=== PATIENT | female | born 1980 | race Two or more races ===

== ENCOUNTER 2017-10-24 14:31 | Observation (INO) | payer SELFPAY ==
[~2017-10-24] VITALS: Ht 157.5 cm; Wt 66.3 kg
[2017-10-24 14:59] LABS: BASO # 0.1 x10^3/uL (0.0-0.2); BASO % 0 % (0-3); EOS # 0.3 x10^3/uL (0.0-0.7); EOS % 2 % (0-3); HEMATOCRIT 42.2 % (36.0-47.0); HEMOGLOBIN 15.1 g/dL (12.0-15.5); LYMPH # 2.6 x10^3/uL (1.0-4.8); LYMPH % 15 % (24-48); MEAN CORPUSCULAR HEMOGLOBIN 32 pg (25-35); MEAN CORPUSCULAR HGB CONC 36 g/dL (31-37); MEAN CORPUSCULAR VOLUME 88 fL (79-100); MONO % 6 % (0-9); NEUT # 13.8 x10^3uL (1.8-7.7); NEUT % 78 % (31-73); PLATELET COUNT 444 x10^3/uL (140-400); RED CELL DISTRIBUTION WIDTH 12.9 % (11.5-14.5); WHITE BLOOD COUNT 17.8 x10^3/uL (4.0-11.0)
[2017-10-24] MEDS ORDERED: IV NORMAL SALINE 1000ML BAG 1,000 ML IV ONE ×2 (15:00→16:15)
[2017-10-24 15:14] LABS: CALCIUM 9.9 mg/dL (8.5-10.1); DIRECT BILIRUBIN 0.1 mg/dL (0.0-0.2); GFR 62.4; TOTAL BILIRUBIN 0.3 mg/dL (0.2-1.0); TOTAL PROTEIN 9.1 g/dL (6.4-8.2)
[2017-10-24 15:17] LABS: POTASSIUM 2.9 mmol/L (3.5-5.1)
[2017-10-24 15:21] LABS: % BASOS 1 % (0-3); % EOS 2 % (0-5); % LYMPHS 16 % (24-48); % MONOS 6 % (0-10); % SEGS 75 % (35-66); PLT ESTIMATE INCREASED (ADEQUATE)
--- NOTE | 2017-10-24 15:47 | EKG ---
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
--- NOTE | 2017-10-24 16:01 | RAD ---
EXAM: Chest, single view. HISTORY: Chest pain. COMPARISON: None. FINDINGS: A frontal view of the chest is obtained. There is no infiltrate, pleural effusion or pneumothorax. The heart is normal in size. IMPRESSION: No acute pulmonary finding. Electronically signed by: Kia Orozco MD (10/24/2017 3:57 PM) [place] [id number]
[2017-10-24 16:08] LABS: PREG TEST PT QUAL NEGATIVE (NEG)
[2017-10-24 16:09] LABS: ACETAMIN < 2 mcg/ml (10-30); ETHANOL < 10 mg/dL (0-10); SALIC 2.9 mg/dL (2.8-20.0)
--- NOTE | 2017-10-24 16:58 | PHYS DOC ---
Past Medical History Past Medical History: Other Additional Past Medical Histor: HYPOKALEMIA Past Surgical History: No Surgical History Additional Information: 0.25 PPD Alcohol Use: None Drug Use: None Adult General Chief Complaint Chief Complaint: CHEST PAIN HPI HPI This is a pleasant 36-year-old female with a history of low potassium presenting the emergency department today with chest pain started at noon associate with shortness breath and cough over the past few days that is nonproductive. She also has had loose stools over the past 24 hours. The pain as a sharp substernal pain that is nonradiating intermittent and without alleviating factors. She denies diaphoresis or nausea. Past surgical history: None Social history, smoker, denies IV drug use, drink occasionally. Review of systems is negative for abdominal pain nausea vomiting. Negative for fevers chills or headache. Negative neck stiffness. All other review of systems is negative unless otherwise noted in history of present illness. ED course: 36-year-old female presenting the emergency department with significant hypertension and tachycardia with chest pain. EKG obtained and reviewed by myself shows tachycardia at a rate of approximately 130. Sinus rhythm. ST segments are congruent. Not suggestive of ACS. Chest x-ray obtained and unremarkable. White blood cell count is elevated at 17,000. Potassium is low at 2.9. IV fluids given along with IV labetalol. CT angiogram ordered. Lactic acid added on. IV Rocephin given in the emergency department. CT injury negative for pulmonary embolism. IV potassium given. Urine drug screen tested positive for methamphetamines. We'll give the patient IV Ativan. We will admit the patient to Dr. domínguez for further evaluation treatment and care. Cardiology consulted. Review of Systems Review of Systems SEE ABOVE. Current Medications Current Medications Current Medications Medications (Trade) Dose Ordered Sig/Liborio Start Time Stop Time Status Last Admin Dose Admin Ceftriaxone Sodium 50 ml @ 100 mls/hr 1X ONCE 10/24/17 15:45 10/24/17 16:14 DC 10/24/17 15:53 100 MLS/HR Iohexol (Omnipaque 300 Mg/ml) 100 ml STK-MED ONCE 10/24/17 17:06 10/24/17 17:07 DC Labetalol HCl (Normodyne Iv Push) 10 mg 1X ONCE 10/24/17 17:00 10/24/17 17:01 DC 10/24/17 17:50 10 MG Lorazepam (Ativan) 1 mg 1X ONCE 10/24/17 18:00 10/24/17 18:01 DC Morphine Sulfate (Morphine Sulfate) 2 mg PRN Q2HR PRN 10/24/17 18:00 10/25/17 17:59 Ondansetron HCl (Zofran) 4 mg PRN Q8HRS PRN 10/24/17 18:00 10/25/17 17:59 Potassium Chloride/Sodium Chloride 1,000 ml @ 75 mls/hr 1X ONCE 10/24/17 16:00 10/25/17 05:19 10/24/17 16:15 75 MLS/HR Sodium Chloride 1,000 ml @ 100 mls/hr Q10H 10/24/17 17:47 10/25/17 17:46 Allergies Allergies Allergies Coded Allergies Type Severity Reaction Last Updated Verified No Known Drug Allergies 10/24/17 No Physical Exam Physical Exam SEE ABOVE Constitutional: Well developed, well nourished, no acute distress HENT: Normocephalic, atraumatic, bilateral external ears normal, oropharynx moist, no oral exudates, nose normal. [] Eyes: PERRLA, EOMI, conjunctiva normal, no discharge. [] Neck: Normal range of motion, no tenderness, supple, no stridor. [] Cardiovascular:tachy heart rate with regular rhythm, no murmur [] Lungs & Thorax: Bilateral breath sounds clear to auscultation [] Abdomen: Bowel sounds normal, soft, no tenderness, no masses, no pulsatile masses. [] Skin: Warm, dry, no erythema, no rash. [] Back: No tenderness, no CVA tenderness. [] Extremities: No tenderness, no cyanosis, no clubbing, ROM intact, no edema. [] Neurologic: Alert and oriented X 3, normal motor function, normal sensory function, no focal deficits noted. [] Psychologic: Affect normal, judgement normal, mood normal. [] Current Patient Data Vital Signs Vital Signs Date Time Temp Pulse Resp B/P (MAP) Pulse Ox O2 Delivery O2 Flow Rate FiO2 10/24/17 17:50 106 191/98 10/24/17 14:37 97.7 26 100 Room Air 97.7 Lab Values Laboratory Tests Test 10/24/17 14:55 10/24/17 15:56 10/24/17 16:01 10/24/17 16:50 White Blood Count 17.8 x10^3/uL (4.0-11.0) H Red Blood Count 4.80 x10^6/uL (3.50-5.40) Hemoglobin 15.1 g/dL (12.0-15.5) Hematocrit 42.2 % (36.0-47.0) Mean Corpuscular Volume 88 fL (79-100) Mean Corpuscular Hemoglobin 32 pg (25-35) Mean Corpuscular Hemoglobin Concent 36 g/dL (31-37) Red Cell Distribution Width 12.9 % (11.5-14.5) Platelet Count 444 x10^3/uL (140-400) H Neutrophils (%) (Auto) 78 % (31-73) H Lymphocytes (%) (Auto) 15 % (24-48) L Monocytes (%) (Auto) 6 % (0-9) Eosinophils (%) (Auto) 2 % (0-3) Basophils (%) (Auto) 0 % (0-3) Neutrophils # (Auto) 13.8 x10^3uL (1.8-7.7) H Lymphocytes # (Auto) 2.6 x10^3/uL (1.0-4.8) Monocytes # (Auto) 1.0 x10^3/uL (0.0-1.1) Eosinophils # (Auto) 0.3 x10^3/uL (0.0-0.7) Basophils # (Auto) 0.1 x10^3/uL (0.0-0.2) Segmented Neutrophils % 75 % (35-66) H Lymphocytes % 16 % (24-48) L Monocytes % 6 % (0-10) Eosinophils % 2 % (0-5) Basophils % 1 % (0-3) Platelet Estimate Increased (ADEQUATE) D-Dimer (Racheal) 0.48 ug/mlFEU (0.00-0.50) Sodium Level 139 mmol/L (136-145) Potassium Level 2.9 mmol/L (3.5-5.1) *L Chloride Level 100 mmol/L (98-107) Carbon Dioxide Level 19 mmol/L (21-32) L Anion Gap 20 (6-14) H Blood Urea Nitrogen 5 mg/dL (7-20) L Creatinine 1.0 mg/dL (0.6-1.0) Estimated GFR (Cockcroft-Gault) 62.4 Glucose Level 118 mg/dL (70-99) H Calcium Level 9.9 mg/dL (8.5-10.1) Total Bilirubin 0.3 mg/dL (0.2-1.0) Direct Bilirubin 0.1 mg/dL (0.0-0.2) Aspartate Amino Transferase (AST) 34 U/L (15-37) Alanine Aminotransferase (ALT) 38 U/L (14-59) Alkaline Phosphatase 112 U/L (46-116) Troponin I Quantitative < 0.017 ng/mL (0.000-0.055) Total Protein 9.1 g/dL (6.4-8.2) H Albumin 4.0 g/dL (3.4-5.0) Lipase 164 U/L (73-393) Serum Test, Qualitative Negative (NEG) Salicylates Level 2.9 mg/dL (2.8-20.0) Salicylate Last Dose Date Unknown Salicylate Last Dose Time Unknown Acetaminophen Level < 2 mcg/ml (10-30) L Acetaminophen Last Dose Date Unknown Acetaminophen Last Dose Time Unknown Ethyl Alcohol Level < 10 mg/dL (0-10) Urine Opiates Screen Neg (NEG) Urine Methadone Screen Neg (NEG) Urine Barbiturates Neg (NEG) Urine Phencyclidine Screen Neg (NEG) Urine Amphetamine/Methamphetamine Pos (NEG) Urine Benzodiazepines Screen Neg (NEG) Urine Cocaine Screen Neg (NEG) Urine Cannabinoids Screen Neg (NEG) Urine Ethyl Alcohol Neg (NEG) POC Urine HCG, Qualitative Hcg negative (Negative) Lactic Acid Level 2.5 mmol/L (0.4-2.0) H Laboratory Tests 10/24/17 14:55 Laboratory Tests 10/24/17 14:55 EKG EKG [] Radiology/Procedures Radiology/Procedures [] Course & Med Decision Making Course & Med Decision Making Pertinent Labs and Imaging studies reviewed. (See chart for details) [] Dragon Disclaimer Dragon Disclaimer This electronic medical record was generated, in whole or in part, using a voice recognition dictation system. Departure Departure Impression: Primary Impression: Chest pain Additional Impressions: Tachycardia Hypertension Lactic acidosis Disposition: 09 ADMITTED INPATIENT Admitting Physician: Domínguez, Elsi Condition: STABLE Referrals: NO PCP (PCP) Problem Qualifiers GEGE SALGADO MD Oct 24, 2017 16:58
[2017-10-24] MEDS ORDERED: LABETALOL 20 MG/4 ML DISP.SYRIN. IVP ONE (17:00)
[2017-10-24] MEDS ORDERED: IOHEXOL 300 MG/ML 100ML VIAL. ONE (17:06)
[2017-10-24 17:12] LABS: BARBITURATES NEG (NEG); BENZODIAZEPINES NEG (NEG); CANNABINOIDS NEG (NEG); COCAINE NEG (NEG); METHADONE NEG (NEG); OPIATES NEG (NEG); PHENCYCLIDINE NEG (NEG)
[2017-10-24 17:20] LABS: AMPHETAMINE/METHAMPHETAMINE POS (NEG)
--- NOTE | 2017-10-24 17:39 | RAD ---
CTA scan of the Chest with Contrast (Pulmonary Embolism protocol) 10/24/2017 Clinical History: Severe chest pain since earlier today. Technique: After the intravenous administration of 75 cc of Omnipaque 300, contiguous, 0.625 mm axial sections were obtained through the chest. 2 mm axial and 3D MIP coronal and sagittal reconstructed images were obtained. Findings: Comparison is made to a portable chest radiograph performed earlier today. No filling defect is seen within the major branches of either pulmonary artery. There is no CT evidence of pulmonary embolism. The heart and thoracic aorta are within normal limits. Minimal dependent subsegmental atelectasis is seen involving both lungs. No area of consolidation is seen., pleural effusion or pneumothorax is seen. Images through the upper abdomen demonstrate calcified gallstones within a contracted gallbladder. Impression: There is no CT evidence of pulmonary embolism. Electronically signed by: Demarco Miller MD (10/24/2017 5:35 PM) [facility]
[2017-10-24] MEDS: IV NORMAL SALINE 1000ML BAG 1,000 ML IV SCH (17:47)
[2017-10-24] MEDS ORDERED: ONDANSETRON PF 4 MG/2 ML VIAL. IV PRN (18:00)
[2017-10-24] MEDS ORDERED: MORPHINE SULFATE 2 MG/ML VIAL. IV PRN (18:00)
[2017-10-24 18:03] LABS: BILIRUBIN,URINE NEGATIVE (NEG); CLARITY,URINE CLEAR; NITRITE,URINE NEGATIVE (NEG); PH,URINE 6.5; PROTEIN,URINE NEGATIVE (NEG-TRACE); UROBILINOGEN,URINE 0.2 mg/dL (0.2 mg/dL)
[2017-10-24 18:13] LABS: BACTERIA,URINE MODERATE /HPF (0-FEW); COLOR,URINE STRAW; RBC,URINE RARE /HPF (0-2); SQUAMOUS EPITHELIAL CELL,UR MOD /LPF
--- NOTE | 2017-10-24 19:24 | EKG ---
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
[2017-10-24 20:50] VITALS: BP 158/92
[2017-10-24] MEDS ORDERED: POTASSIUM CHLORIDE 20 MEQ TABLET.ER. PO ONE (21:30)
--- NOTE | 2017-10-24 21:33 | PDOC1 ---
History and Physical Date of Admission Date of Admission DATE: 10/24/17 TIME: 21:29 Identification/Chief Complaint Chief Complaint chestpain Source Source: Caregiver, Chart review, Patient History of Present Illness History of Present Illness This is a pleasant 36-year-old female admit form ER with chest pain, tachycardia and marked anxiety. The chest pain started at noon associate with shortness breath and cough over the past few days that is nonproductive. SHe seems anxious and reports that she feels terrible and cannot calm down, she has her daughters in the room, and denies, vaguely any meds or ingestions. The pain as a sharp substernal pain that is nonradiating intermittent and without alleviating factors. She denies diaphoresis or nausea. Past Medical History Cardiovascular: No pertinent hx Pulmonary: No pertinent hx GI: No pertinent hx Heme/Onc: No pertinent hx Family History Family History: No Significant Social History Drugs: Crystal meth (she seems unaware of this) Current Problem List Problem List Problems Medical Problems: (1) Chest pain Status: Acute (2) Hypertension Status: Acute (3) Lactic acidosis Status: Acute (4) Tachycardia Status: Acute Current Medications Current Medications Current Medications Sodium Chloride 1,000 ml @ 1,000 mls/hr 1X ONCE IV Last administered on at 15:23; Start 10/24/17 at 15:00; Stop 10/24/17 at 15:59; Status DC Ceftriaxone Sodium 50 ml @ 100 mls/hr 1X ONCE IV Last administered on at 15:53; Start 10/24/17 at 15:45; Stop 10/24/17 at 16:14; Status DC Potassium Chloride/Sodium Chloride 1,000 ml @ 75 mls/hr 1X ONCE IV Last administered on 10/24/17at 16:15; Start 10/24/17 at 16:00; Stop 10/25/17 at 05:19 Sodium Chloride 1,000 ml @ 1,000 mls/hr 1X ONCE IV Last administered on at 16:18; Start 10/24/17 at 16:15; Stop 10/24/17 at 17:14; Status DC Labetalol HCl (Normodyne Iv Push) 10 mg 1X ONCE IVP Last administered on at 17:50; Start 10/24/17 at 17:00; Stop 10/24/17 at 17:01; Status DC Iohexol (Omnipaque 300 Mg/ml) 100 ml STK-MED ONCE .ROUTE ; Start 10/24/17 at 17: 06; Stop 10/24/17 at 17:07; Status DC Ondansetron HCl (Zofran) 4 mg PRN Q8HRS PRN IV NAUSEA/VOMITING; Start 10/24/17 at 18:00; Stop 10/25/17 at 17:59 Morphine Sulfate (Morphine Sulfate) 2 mg PRN Q2HR PRN IV PAIN; Start 10/24/17 at 18:00; Stop 10/25/17 at 17:59 Sodium Chloride 1,000 ml @ 100 mls/hr Q10H IV ; Start 10/24/17 at 17:47; Stop 10/25/17 at 17:46 Lorazepam (Ativan) 1 mg 1X ONCE IV Last administered on 10/24/17at 18:30; Start 10/24/17 at 18:00; Stop 10/24/17 at 18:01; Status DC Lidocaine (Lidoderm) 1 patch DAILY TD ; Start 10/25/17 at 18:30 Allergies Allergies: Coded Allergies: No Known Drug Allergies (Unverified , 10/24/17) ROS General: No: Chills, Night Sweats, Fatigue, Malaise, Appetite, Other PSYCHOLOGICAL ROS: YES: Anxiety, Sleep disturbances; No: Behavioral Disorder, Concentration difficultie, Decreased libido, Depression, Disorientation, Hallucinations, Hostility, Irritablity, Memory difficulties, Mood Swings, Obsessive thoughts, Suicidal ideation, Other Eyes: No Blurry vision, No Decreased vision, No Double vision, No Dry eyes, No Excessive tearing, No Eye Pain, No Itchy Eyes, No Loss of vision, No Photophobia , No Scotomata, No Uses contacts, No Uses glasses, No Other HEENT: No: Heacaches, Visual Changes, Hearing change, Nasal congestion, Nasal discharge, Oral lesions, Sinus pain, Sore Throat, Epistaxis, Sneezing, Snoring, Tinnitus, Vertigo, Vocal changes, Other Respiratory: YES: Tachypnea; No: Cough, Hemoptysis, Orthopnea, Pleuritic Pain, Shortness of breath, SOB with excertion, Sputum Changes, Stridor, Wheezing, Other Cardiovascular: yes Chest Pain, yes Other; No Palpitations, No Orthopnea, No Paroxysmal Noc. Dyspnea, No Edema, No Lt Headedness Gastrointestinal: No Nausea, No Vomiting, No Abdominal Pain, No Diarrhea, No Constipation, No Melena, No Hematochezia, No Other Genitourinary: No Dysuria, No Frequency, No Incontinence, No Hematuria, No Retention, No Discharge, No Urgency, No Pain, No Flank Pain, No Other, No , No , No , No , No , No , No Musculoskeletal: Yes Joint Stiffness; No Gait Disturbance, No Joint Pain, No Joint Swelling, No Muscle Pain, No Muscular Weakness, No Pain In:, No Swelling In:, No Other Neurological: No Behavorial Changes, No Bowel/Bladder ControlChng, No Confusion , No Dizziness, No Gait Disturbance, No Headaches, No Impaired Coord/balance, No Memory Loss, No Numbness/Tingling, No Seizures, No Speech Problems, No Tremors, No Visual Changes, No Weakness, No Other Skin: No Dry Skin, No Eczema, No Hair Changes, No Lumps, No Mole Changes, No Mottling, No Nail Changes, No Pruritus, No Rash, No Skin Lesion Changes, No Other, No Acne Physical Exam General: Alert, Cooperative, mild distress, moderate distress HEENT: EOMI, Mucous membr. moist/pink Heart: S1S2, no gallops, no murmurs Abdomen: Soft Extremities: No cyanosis Skin: No rashes Neuro: Normal speech, Sensation intact Psych/Mental Status: Mood NL Vitals Vitals Vital Signs Date Time Temp Pulse Resp B/P (MAP) Pulse Ox O2 Delivery O2 Flow Rate FiO2 10/24/17 20:50 98.5 99 16 158/92 (114) 100 Room Air 98.5 Labs Labs Laboratory Tests Test 10/24/17 14:55 10/24/17 15:56 10/24/17 16:01 10/24/17 16:50 White Blood Count 17.8 x10^3/uL (4.0-11.0) Red Blood Count 4.80 x10^6/uL (3.50-5.40) Hemoglobin 15.1 g/dL (12.0-15.5) Hematocrit 42.2 % (36.0-47.0) Mean Corpuscular Volume 88 fL (79-100) Mean Corpuscular Hemoglobin 32 pg (25-35) Mean Corpuscular Hemoglobin Concent 36 g/dL (31-37) Red Cell Distribution Width 12.9 % (11.5-14.5) Platelet Count 444 x10^3/uL (140-400) Neutrophils (%) (Auto) 78 % (31-73) Lymphocytes (%) (Auto) 15 % (24-48) Monocytes (%) (Auto) 6 % (0-9) Eosinophils (%) (Auto) 2 % (0-3) Basophils (%) (Auto) 0 % (0-3) Neutrophils # (Auto) 13.8 x10^3uL (1.8-7.7) Lymphocytes # (Auto) 2.6 x10^3/uL (1.0-4.8) Monocytes # (Auto) 1.0 x10^3/uL (0.0-1.1) Eosinophils # (Auto) 0.3 x10^3/uL (0.0-0.7) Basophils # (Auto) 0.1 x10^3/uL (0.0-0.2) Segmented Neutrophils % 75 % (35-66) Lymphocytes % 16 % (24-48) Monocytes % 6 % (0-10) Eosinophils % 2 % (0-5) Basophils % 1 % (0-3) Platelet Estimate Increased (ADEQUATE) D-Dimer (Racheal) 0.48 ug/mlFEU (0.00-0.50) Sodium Level 139 mmol/L (136-145) Potassium Level 2.9 mmol/L (3.5-5.1) Chloride Level 100 mmol/L (98-107) Carbon Dioxide Level 19 mmol/L (21-32) Anion Gap 20 (6-14) Blood Urea Nitrogen 5 mg/dL (7-20) Creatinine 1.0 mg/dL (0.6-1.0) Estimated GFR (Cockcroft-Gault) 62.4 Glucose Level 118 mg/dL (70-99) Calcium Level 9.9 mg/dL (8.5-10.1) Total Bilirubin 0.3 mg/dL (0.2-1.0) Direct Bilirubin 0.1 mg/dL (0.0-0.2) Aspartate Amino Transf (AST/SGOT) 34 U/L (15-37) Alanine Aminotransferase (ALT/SGPT) 38 U/L (14-59) Alkaline Phosphatase 112 U/L (46-116) Troponin I Quantitative < 0.017 ng/mL (0.000-0.055) Total Protein 9.1 g/dL (6.4-8.2) Albumin 4.0 g/dL (3.4-5.0) Lipase 164 U/L (73-393) Serum Test, Qualitative Negative (NEG) Salicylates Level 2.9 mg/dL (2.8-20.0) Salicylate Last Dose Date Unknown Salicylate Last Dose Time Unknown Acetaminophen Level < 2 mcg/ml (10-30) Acetaminophen Last Dose Date Unknown Acetaminophen Last Dose Time Unknown Ethyl Alcohol Level < 10 mg/dL (0-10) Urine Collection Type Void Urine Color Straw Urine Clarity Clear Urine pH 6.5 Urine Specific [place] <=1.005 Urine Protein Negative mg/dL (NEG-TRACE) Urine Glucose (UA) Negative mg/dL (NEG) Urine Ketones (Stick) Negative mg/dL (NEG) Urine Blood Small (NEG) Urine Nitrite Negative (NEG) Urine Bilirubin Negative (NEG) Urine Urobilinogen Dipstick 0.2 mg/dL (0.2 mg/dL) Urine Leukocyte Esterase Small (NEG) Urine RBC Rare /HPF (0-2) Urine WBC 1-4 /HPF (0-4) Urine Squamous Epithelial Cells Mod /LPF Urine Bacteria Moderate /HPF (0-FEW) Urine Opiates Screen Neg (NEG) Urine Methadone Screen Neg (NEG) Urine Barbiturates Neg (NEG) Urine Phencyclidine Screen Neg (NEG) Urine Amphetamine/Methamphetamine Pos (NEG) Urine Benzodiazepines Screen Neg (NEG) Urine Cocaine Screen Neg (NEG) Urine Cannabinoids Screen Neg (NEG) Urine Ethyl Alcohol Neg (NEG) Bedside Urine HCG, Qualitative Hcg negative (Negative) Lactic Acid Level 2.5 mmol/L (0.4-2.0) Test 10/24/17 20:30 Troponin I Quantitative < 0.017 ng/mL (0.000-0.055) Laboratory Tests Test 10/24/17 14:55 10/24/17 15:56 10/24/17 16:01 10/24/17 16:50 White Blood Count 17.8 x10^3/uL (4.0-11.0) Red Blood Count 4.80 x10^6/uL (3.50-5.40) Hemoglobin 15.1 g/dL (12.0-15.5) Hematocrit 42.2 % (36.0-47.0) Mean Corpuscular Volume 88 fL (79-100) Mean Corpuscular Hemoglobin 32 pg (25-35) Mean Corpuscular Hemoglobin Concent 36 g/dL (31-37) Red Cell Distribution Width 12.9 % (11.5-14.5) Platelet Count 444 x10^3/uL (140-400) Neutrophils (%) (Auto) 78 % (31-73) Lymphocytes (%) (Auto) 15 % (24-48) Monocytes (%) (Auto) 6 % (0-9) Eosinophils (%) (Auto) 2 % (0-3) Basophils (%) (Auto) 0 % (0-3) Neutrophils # (Auto) 13.8 x10^3uL (1.8-7.7) Lymphocytes # (Auto) 2.6 x10^3/uL (1.0-4.8) Monocytes # (Auto) 1.0 x10^3/uL (0.0-1.1) Eosinophils # (Auto) 0.3 x10^3/uL (0.0-0.7) Basophils # (Auto) 0.1 x10^3/uL (0.0-0.2) Segmented Neutrophils % 75 % (35-66) Lymphocytes % 16 % (24-48) Monocytes % 6 % (0-10) Eosinophils % 2 % (0-5) Basophils % 1 % (0-3) Platelet Estimate Increased (ADEQUATE) D-Dimer (Racheal) 0.48 ug/mlFEU (0.00-0.50) Sodium Level 139 mmol/L (136-145) Potassium Level 2.9 mmol/L (3.5-5.1) Chloride Level 100 mmol/L (98-107) Carbon Dioxide Level 19 mmol/L (21-32) Anion Gap 20 (6-14) Blood Urea Nitrogen 5 mg/dL (7-20) Creatinine 1.0 mg/dL (0.6-1.0) Estimated GFR (Cockcroft-Gault) 62.4 Glucose Level 118 mg/dL (70-99) Calcium Level 9.9 mg/dL (8.5-10.1) Total Bilirubin 0.3 mg/dL (0.2-1.0) Direct Bilirubin 0.1 mg/dL (0.0-0.2) Aspartate Amino Transf (AST/SGOT) 34 U/L (15-37) Alanine Aminotransferase (ALT/SGPT) 38 U/L (14-59) Alkaline Phosphatase 112 U/L (46-116) Troponin I Quantitative < 0.017 ng/mL (0.000-0.055) Total Protein 9.1 g/dL (6.4-8.2) Albumin 4.0 g/dL (3.4-5.0) Lipase 164 U/L (73-393) Serum Test, Qualitative Negative (NEG) Salicylates Level 2.9 mg/dL (2.8-20.0) Salicylate Last Dose Date Unknown Salicylate Last Dose Time Unknown Acetaminophen Level < 2 mcg/ml (10-30) Acetaminophen Last Dose Date Unknown Acetaminophen Last Dose Time Unknown Ethyl Alcohol Level < 10 mg/dL (0-10) Urine Collection Type Void Urine Color Straw Urine Clarity Clear Urine pH 6.5 Urine Specific [place] <=1.005 Urine Protein Negative mg/dL (NEG-TRACE) Urine Glucose (UA) Negative mg/dL (NEG) Urine Ketones (Stick) Negative mg/dL (NEG) Urine Blood Small (NEG) Urine Nitrite Negative (NEG) Urine Bilirubin Negative (NEG) Urine Urobilinogen Dipstick 0.2 mg/dL (0.2 mg/dL) Urine Leukocyte Esterase Small (NEG) Urine RBC Rare /HPF (0-2) Urine WBC 1-4 /HPF (0-4) Urine Squamous Epithelial Cells Mod /LPF Urine Bacteria Moderate /HPF (0-FEW) Urine Opiates Screen Neg (NEG) Urine Methadone Screen Neg (NEG) Urine Barbiturates Neg (NEG) Urine Phencyclidine Screen Neg (NEG) Urine Amphetamine/Methamphetamine Pos (NEG) Urine Benzodiazepines Screen Neg (NEG) Urine Cocaine Screen Neg (NEG) Urine Cannabinoids Screen Neg (NEG) Urine Ethyl Alcohol Neg (NEG) Bedside Urine HCG, Qualitative Hcg negative (Negative) Lactic Acid Level 2.5 mmol/L (0.4-2.0) Test 10/24/17 20:30 Troponin I Quantitative < 0.017 ng/mL (0.000-0.055) VTE Prophylaxis Ordered VTE Prophylaxis Devices: No VTE Pharmacological Prophylaxi: No Assessment/Plan Assessment/Plan chest pain, left sternal, poss angina, but also reproducible Meth use, she seems unaware, and may have accidentally ingested hypokalemia SIRS - IV rocephin given, UA neg, no source admit, KEENAN MEANS MD Oct 24, 2017 21:33
[2017-10-24 22:38] VITALS: BP 156/98
[2017-10-24] MEDS ORDERED: INFLUENZA VAX SCREEN BY RX. MC ONE (23:45)
[2017-10-25 03:26] VITALS: BP 141/96
[2017-10-25] MEDS: IV NORMAL SALINE 1000ML BAG 1,000 ML IV SCH ×2 (05:25→13:47)
[2017-10-25 06:03] LABS: CALCIUM 8.6 mg/dL (8.5-10.1); CREATININE 0.7 mg/dL (0.6-1.0); GFR 94.2; POTASSIUM 3.9 mmol/L (3.5-5.1)
[2017-10-25 06:13] LABS: BASO # 0.1 x10^3/uL (0.0-0.2); BASO % 1 % (0-3); EOS # 1.2 x10^3/uL (0.0-0.7); EOS % 8 % (0-3); HEMATOCRIT 36.8 % (36.0-47.0); HEMOGLOBIN 12.7 g/dL (12.0-15.5); LYMPH # 3.6 x10^3/uL (1.0-4.8); LYMPH % 27 % (24-48); MEAN CORPUSCULAR HEMOGLOBIN 31 pg (25-35); MEAN CORPUSCULAR HGB CONC 34 g/dL (31-37); MEAN CORPUSCULAR VOLUME 89 fL (79-100); MONO # 0.8 x10^3/uL (0.0-1.1); MONO % 6 % (0-9); NEUT % 59 % (31-73); PLATELET COUNT 347 x10^3/uL (140-400); RED BLOOD COUNT 4.13 x10^6/uL (3.50-5.40); RED CELL DISTRIBUTION WIDTH 13.3 % (11.5-14.5); WHITE BLOOD COUNT 13.6 x10^3/uL (4.0-11.0)
[2017-10-25 07:00] VITALS: BP 140/78
[2017-10-25] MEDS ORDERED: POTASSIUM CHLORIDE 20 MEQ TABLET.ER. PO SCH (08:00)
--- NOTE | 2017-10-25 09:20 | PDOC2 ---
ROBYN BARAKAT SOCK LINING EXAMINER 10/25/17 0920: CARDIAC CONSULT DATE OF CONSULT Date of Consult DATE: 10/25/17 TIME: 09:13 REASON FOR CONSULT Reason for Consult: chest pain REFERRING PHYSICIAN Referring Physician: Yudelka SOURCE Source: Chart review HISTORY OF PRESENT ILLNESS HISTORY OF PRESENT ILLNESS 36 year old non-Martiniquais speaking female admitted through the ER for tachycardia and chest pain. UDS + for methamphetamines. Troponins and EKGs not consistent with AMI. Reason for Visit: chest pain PAST MEDICAL HISTORY Cardiovascular: No pertinent hx Pulmonary: No pertinent hx GI: No pertinent hx Heme/Onc: No pertinent hx Renal/: No pertinent hx Endocrine: No pertinent hx PAST SURGICAL HISTORY Past Surgical History: No pertinent history FAMILY HISTORY Family History: Family History Unknown SOCIAL HISTORY Drugs: Crystal meth CURRENT MEDICATIONS CURRENT MEDICATIONS Current Medications Medications (Trade) Dose Ordered Sig/Liborio Route PRN Reason Start Time Stop Time Status Last Admin Dose Admin Sodium Chloride 1,000 ml @ 1,000 mls/hr 1X ONCE IV 10/24/17 15:00 10/24/17 15:59 DC 10/24/17 15:23 Ceftriaxone Sodium 50 ml @ 100 mls/hr 1X ONCE IV 10/24/17 15:45 10/24/17 16:14 DC 10/24/17 15:53 Potassium Chloride/Sodium Chloride 1,000 ml @ 75 mls/hr 1X ONCE IV 10/24/17 16:00 10/25/17 05:19 DC 10/24/17 16:15 Sodium Chloride 1,000 ml @ 1,000 mls/hr 1X ONCE IV 10/24/17 16:15 10/24/17 17:14 DC 10/24/17 16:18 Labetalol HCl (Normodyne Iv Push) 10 mg 1X ONCE IVP 10/24/17 17:00 10/24/17 17:01 DC 10/24/17 17:50 Sodium Chloride 1,000 ml @ 100 mls/hr Q10H IV 10/24/17 17:47 10/25/17 17:46 10/25/17 05:25 Lorazepam (Ativan) 1 mg 1X ONCE IV 10/24/17 18:00 10/24/17 18:01 DC 10/24/17 18:30 Potassium Chloride (Klor-Con) 40 meq 1X ONCE PO 10/24/17 21:30 10/24/17 21:36 DC 10/24/17 22:10 ALLERGIES ALLERGIES: Coded Allergies: No Known Drug Allergies (Unverified , 10/24/17) ROS Respiratory: YES: Shortness of breath Cardiovascular: yes Chest Pain PHYSICAL EXAM General: Alert, Cooperative, No acute distress HEENT: Atraumatic Lungs: Clear to auscultation, Normal air movement Heart: Regular rate, Normal S1, Normal S2, No murmurs Abdomen: Soft Extremities: No edema Skin: No rashes Neuro: Normal speech Psych/Mental Status: Mental status NL, Mood NL MUSCULOSKELETAL: No deformity VITALS VITALS Vital Signs Date Time Temp Pulse Resp B/P (MAP) Pulse Ox O2 Delivery O2 Flow Rate FiO2 10/25/17 07:00 98.2 86 18 140/78 (98) 99 Room Air 98.2 LABS Lab: Laboratory Tests Test 10/24/17 14:55 10/24/17 15:56 10/24/17 16:01 10/24/17 16:50 White Blood Count 17.8 x10^3/uL (4.0-11.0) Red Blood Count 4.80 x10^6/uL (3.50-5.40) Hemoglobin 15.1 g/dL (12.0-15.5) Hematocrit 42.2 % (36.0-47.0) Mean Corpuscular Volume 88 fL (79-100) Mean Corpuscular Hemoglobin 32 pg (25-35) Mean Corpuscular Hemoglobin Concent 36 g/dL (31-37) Red Cell Distribution Width 12.9 % (11.5-14.5) Platelet Count 444 x10^3/uL (140-400) Neutrophils (%) (Auto) 78 % (31-73) Lymphocytes (%) (Auto) 15 % (24-48) Monocytes (%) (Auto) 6 % (0-9) Eosinophils (%) (Auto) 2 % (0-3) Basophils (%) (Auto) 0 % (0-3) Neutrophils # (Auto) 13.8 x10^3uL (1.8-7.7) Lymphocytes # (Auto) 2.6 x10^3/uL (1.0-4.8) Monocytes # (Auto) 1.0 x10^3/uL (0.0-1.1) Eosinophils # (Auto) 0.3 x10^3/uL (0.0-0.7) Basophils # (Auto) 0.1 x10^3/uL (0.0-0.2) Segmented Neutrophils % 75 % (35-66) Lymphocytes % 16 % (24-48) Monocytes % 6 % (0-10) Eosinophils % 2 % (0-5) Basophils % 1 % (0-3) Platelet Estimate Increased (ADEQUATE) D-Dimer (Racheal) 0.48 ug/mlFEU (0.00-0.50) Sodium Level 139 mmol/L (136-145) Potassium Level 2.9 mmol/L (3.5-5.1) Chloride Level 100 mmol/L (98-107) Carbon Dioxide Level 19 mmol/L (21-32) Anion Gap 20 (6-14) Blood Urea Nitrogen 5 mg/dL (7-20) Creatinine 1.0 mg/dL (0.6-1.0) Estimated GFR (Cockcroft-Gault) 62.4 Glucose Level 118 mg/dL (70-99) Calcium Level 9.9 mg/dL (8.5-10.1) Total Bilirubin 0.3 mg/dL (0.2-1.0) Direct Bilirubin 0.1 mg/dL (0.0-0.2) Aspartate Amino Transf (AST/SGOT) 34 U/L (15-37) Alanine Aminotransferase (ALT/SGPT) 38 U/L (14-59) Alkaline Phosphatase 112 U/L (46-116) Troponin I Quantitative < 0.017 ng/mL (0.000-0.055) Total Protein 9.1 g/dL (6.4-8.2) Albumin 4.0 g/dL (3.4-5.0) Lipase 164 U/L (73-393) Serum Test, Qualitative Negative (NEG) Salicylates Level 2.9 mg/dL (2.8-20.0) Salicylate Last Dose Date Unknown Salicylate Last Dose Time Unknown Acetaminophen Level < 2 mcg/ml (10-30) Acetaminophen Last Dose Date Unknown Acetaminophen Last Dose Time Unknown Ethyl Alcohol Level < 10 mg/dL (0-10) Urine Collection Type Void Urine Color Straw Urine Clarity Clear Urine pH 6.5 Urine Specific [place] <=1.005 Urine Protein Negative mg/dL (NEG-TRACE) Urine Glucose (UA) Negative mg/dL (NEG) Urine Ketones (Stick) Negative mg/dL (NEG) Urine Blood Small (NEG) Urine Nitrite Negative (NEG) Urine Bilirubin Negative (NEG) Urine Urobilinogen Dipstick 0.2 mg/dL (0.2 mg/dL) Urine Leukocyte Esterase Small (NEG) Urine RBC Rare /HPF (0-2) Urine WBC 1-4 /HPF (0-4) Urine Squamous Epithelial Cells Mod /LPF Urine Bacteria Moderate /HPF (0-FEW) Urine Opiates Screen Neg (NEG) Urine Methadone Screen Neg (NEG) Urine Barbiturates Neg (NEG) Urine Phencyclidine Screen Neg (NEG) Urine Amphetamine/Methamphetamine Pos (NEG) Urine Benzodiazepines Screen Neg (NEG) Urine Cocaine Screen Neg (NEG) Urine Cannabinoids Screen Neg (NEG) Urine Ethyl Alcohol Neg (NEG) Bedside Urine HCG, Qualitative Hcg negative (Negative) Lactic Acid Level 2.5 mmol/L (0.4-2.0) Test 10/24/17 20:30 10/24/17 23:40 10/25/17 00:40 10/25/17 04:35 Troponin I Quantitative < 0.017 ng/mL (0.000-0.055) < 0.017 ng/mL (0.000-0.055) Lactic Acid Level 1.9 mmol/L (0.4-2.0) White Blood Count 13.6 x10^3/uL (4.0-11.0) Red Blood Count 4.13 x10^6/uL (3.50-5.40) Hemoglobin 12.7 g/dL (12.0-15.5) Hematocrit 36.8 % (36.0-47.0) Mean Corpuscular Volume 89 fL (79-100) Mean Corpuscular Hemoglobin 31 pg (25-35) Mean Corpuscular Hemoglobin Concent 34 g/dL (31-37) Red Cell Distribution Width 13.3 % (11.5-14.5) Platelet Count 347 x10^3/uL (140-400) Neutrophils (%) (Auto) 59 % (31-73) Lymphocytes (%) (Auto) 27 % (24-48) Monocytes (%) (Auto) 6 % (0-9) Eosinophils (%) (Auto) 8 % (0-3) Basophils (%) (Auto) 1 % (0-3) Neutrophils # (Auto) 8.0 x10^3uL (1.8-7.7) Lymphocytes # (Auto) 3.6 x10^3/uL (1.0-4.8) Monocytes # (Auto) 0.8 x10^3/uL (0.0-1.1) Eosinophils # (Auto) 1.2 x10^3/uL (0.0-0.7) Basophils # (Auto) 0.1 x10^3/uL (0.0-0.2) Sodium Level 139 mmol/L (136-145) Potassium Level 3.9 mmol/L (3.5-5.1) Chloride Level 105 mmol/L (98-107) Carbon Dioxide Level 23 mmol/L (21-32) Anion Gap 11 (6-14) Blood Urea Nitrogen 5 mg/dL (7-20) Creatinine 0.7 mg/dL (0.6-1.0) Estimated GFR (Cockcroft-Gault) 94.2 Glucose Level 80 mg/dL (70-99) Calcium Level 8.6 mg/dL (8.5-10.1) IMAGES IMAGES CT chest : Findings: Comparison is made to a portable chest radiograph performed earlier today. No filling defect is seen within the major branches of either pulmonary artery. There is no CT evidence of pulmonary embolism. The heart and thoracic aorta are within normal limits. Minimal dependent subsegmental atelectasis is seen involving both lungs. No area of consolidation is seen., pleural effusion or pneumothorax is seen. Images through the upper abdomen demonstrate calcified gallstones within a contracted gallbladder. Impression: There is no CT evidence of pulmonary embolism. EKG EKG no acute changes on 2 EKGS ECHOCARDIOGRAM ECHOCARDIOGRAM pending ASSESSMENT/PLAN ASSESSMENT/PLAN 1. chest pain --trop and EKG not consistent with AMI --likely related to methamphetamine use; advised to stop use; no indication for ischemic evaluation at this time --TTE ordered earlier --may discharge later today 2. elevated lactate level --defer to primary service 3. substance abuse --BRITT Sharif MD 10/25/17 8232: CARDIAC CONSULT ASSESSMENT/PLAN ASSESSMENT/PLAN Patient seen and examined. Agree with SEROLOGIST's assessment and plan. Chest pain with atypical features and most probably noncardiac Myocardial infarction has been ruled out based on cardiac enzymes and EKG 2-D echo showed normal LV systolic function without any wall motion abnormalities No further cardiac workup is indicated at this time Thank you for your consultation ROBYN BARAKAT APRN Oct 25, 2017 09:20 BRITT VILLA MD Oct 25, 2017 17:12
[2017-10-25 11:00] VITALS: BP 121/78
[2017-10-25] MEDS ORDERED: traMADol 50 MG TABLET PO PRN (14:30)
[2017-10-25] MEDS ORDERED: ONDANSETRON PF 4 MG/2 ML VIAL. IV PRN (14:30)
[2017-10-25] MEDS ORDERED: ACETAMINOPHEN 325 MG TABLET. PO PRN (14:30)
[2017-10-25] MEDS ORDERED: DOCUSATE SODIUM 100 MG CAPSULE. PO PRN (14:30)
[2017-10-25] MEDS ORDERED: MORPHINE SULFATE 2 MG/ML VIAL. IV PRN (14:30)
--- NOTE | 2017-10-25 14:30 | PDOC ---
PROGRESS NOTES Chief Complaint Chief Complaint chest pain, left sternal, with palpitation with meth Meth use, she seems unaware, and may have accidentally ingested hypokalemia SIRS - leukocytosis, reactive likely plan: fu with card TTE today pt feels fine, no chest pain, no cough, possible dc today or tmr History of Present Illness History of Present Illness feels fine, no cough, sob, or chest pain Vitals Vitals Vital Signs Date Time Temp Pulse Resp B/P (MAP) Pulse Ox O2 Delivery O2 Flow Rate FiO2 10/25/17 11:00 98.2 82 18 121/78 (92) 98 Room Air 98.2 Physical Exam General: Alert, Cooperative, No acute distress Heart: Regular rate, Normal S1, Normal S2, No murmurs Lungs: Clear Abdomen: Soft Extremities: No edema Skin: No rashes Labs LABS Laboratory Tests Test 10/24/17 14:55 10/24/17 15:56 10/24/17 16:01 10/24/17 16:50 White Blood Count 17.8 x10^3/uL (4.0-11.0) Red Blood Count 4.80 x10^6/uL (3.50-5.40) Hemoglobin 15.1 g/dL (12.0-15.5) Hematocrit 42.2 % (36.0-47.0) Mean Corpuscular Volume 88 fL (79-100) Mean Corpuscular Hemoglobin 32 pg (25-35) Mean Corpuscular Hemoglobin Concent 36 g/dL (31-37) Red Cell Distribution Width 12.9 % (11.5-14.5) Platelet Count 444 x10^3/uL (140-400) Neutrophils (%) (Auto) 78 % (31-73) Lymphocytes (%) (Auto) 15 % (24-48) Monocytes (%) (Auto) 6 % (0-9) Eosinophils (%) (Auto) 2 % (0-3) Basophils (%) (Auto) 0 % (0-3) Neutrophils # (Auto) 13.8 x10^3uL (1.8-7.7) Lymphocytes # (Auto) 2.6 x10^3/uL (1.0-4.8) Monocytes # (Auto) 1.0 x10^3/uL (0.0-1.1) Eosinophils # (Auto) 0.3 x10^3/uL (0.0-0.7) Basophils # (Auto) 0.1 x10^3/uL (0.0-0.2) Segmented Neutrophils % 75 % (35-66) Lymphocytes % 16 % (24-48) Monocytes % 6 % (0-10) Eosinophils % 2 % (0-5) Basophils % 1 % (0-3) Platelet Estimate Increased (ADEQUATE) D-Dimer (Racheal) 0.48 ug/mlFEU (0.00-0.50) Sodium Level 139 mmol/L (136-145) Potassium Level 2.9 mmol/L (3.5-5.1) Chloride Level 100 mmol/L (98-107) Carbon Dioxide Level 19 mmol/L (21-32) Anion Gap 20 (6-14) Blood Urea Nitrogen 5 mg/dL (7-20) Creatinine 1.0 mg/dL (0.6-1.0) Estimated GFR (Cockcroft-Gault) 62.4 Glucose Level 118 mg/dL (70-99) Calcium Level 9.9 mg/dL (8.5-10.1) Total Bilirubin 0.3 mg/dL (0.2-1.0) Direct Bilirubin 0.1 mg/dL (0.0-0.2) Aspartate Amino Transf (AST/SGOT) 34 U/L (15-37) Alanine Aminotransferase (ALT/SGPT) 38 U/L (14-59) Alkaline Phosphatase 112 U/L (46-116) Troponin I Quantitative < 0.017 ng/mL (0.000-0.055) Total Protein 9.1 g/dL (6.4-8.2) Albumin 4.0 g/dL (3.4-5.0) Lipase 164 U/L (73-393) Serum Test, Qualitative Negative (NEG) Salicylates Level 2.9 mg/dL (2.8-20.0) Salicylate Last Dose Date Unknown Salicylate Last Dose Time Unknown Acetaminophen Level < 2 mcg/ml (10-30) Acetaminophen Last Dose Date Unknown Acetaminophen Last Dose Time Unknown Ethyl Alcohol Level < 10 mg/dL (0-10) Urine Collection Type Void Urine Color Straw Urine Clarity Clear Urine pH 6.5 Urine Specific [place] <=1.005 Urine Protein Negative mg/dL (NEG-TRACE) Urine Glucose (UA) Negative mg/dL (NEG) Urine Ketones (Stick) Negative mg/dL (NEG) Urine Blood Small (NEG) Urine Nitrite Negative (NEG) Urine Bilirubin Negative (NEG) Urine Urobilinogen Dipstick 0.2 mg/dL (0.2 mg/dL) Urine Leukocyte Esterase Small (NEG) Urine RBC Rare /HPF (0-2) Urine WBC 1-4 /HPF (0-4) Urine Squamous Epithelial Cells Mod /LPF Urine Bacteria Moderate /HPF (0-FEW) Urine Opiates Screen Neg (NEG) Urine Methadone Screen Neg (NEG) Urine Barbiturates Neg (NEG) Urine Phencyclidine Screen Neg (NEG) Urine Amphetamine/Methamphetamine Pos (NEG) Urine Benzodiazepines Screen Neg (NEG) Urine Cocaine Screen Neg (NEG) Urine Cannabinoids Screen Neg (NEG) Urine Ethyl Alcohol Neg (NEG) Bedside Urine HCG, Qualitative Hcg negative (Negative) Lactic Acid Level 2.5 mmol/L (0.4-2.0) Test 10/24/17 20:30 10/24/17 23:40 10/25/17 00:40 10/25/17 04:35 Troponin I Quantitative < 0.017 ng/mL (0.000-0.055) < 0.017 ng/mL (0.000-0.055) Lactic Acid Level 1.9 mmol/L (0.4-2.0) White Blood Count 13.6 x10^3/uL (4.0-11.0) Red Blood Count 4.13 x10^6/uL (3.50-5.40) Hemoglobin 12.7 g/dL (12.0-15.5) Hematocrit 36.8 % (36.0-47.0) Mean Corpuscular Volume 89 fL (79-100) Mean Corpuscular Hemoglobin 31 pg (25-35) Mean Corpuscular Hemoglobin Concent 34 g/dL (31-37) Red Cell Distribution Width 13.3 % (11.5-14.5) Platelet Count 347 x10^3/uL (140-400) Neutrophils (%) (Auto) 59 % (31-73) Lymphocytes (%) (Auto) 27 % (24-48) Monocytes (%) (Auto) 6 % (0-9) Eosinophils (%) (Auto) 8 % (0-3) Basophils (%) (Auto) 1 % (0-3) Neutrophils # (Auto) 8.0 x10^3uL (1.8-7.7) Lymphocytes # (Auto) 3.6 x10^3/uL (1.0-4.8) Monocytes # (Auto) 0.8 x10^3/uL (0.0-1.1) Eosinophils # (Auto) 1.2 x10^3/uL (0.0-0.7) Basophils # (Auto) 0.1 x10^3/uL (0.0-0.2) Sodium Level 139 mmol/L (136-145) Potassium Level 3.9 mmol/L (3.5-5.1) Chloride Level 105 mmol/L (98-107) Carbon Dioxide Level 23 mmol/L (21-32) Anion Gap 11 (6-14) Blood Urea Nitrogen 5 mg/dL (7-20) Creatinine 0.7 mg/dL (0.6-1.0) Estimated GFR (Cockcroft-Gault) 94.2 Glucose Level 80 mg/dL (70-99) Calcium Level 8.6 mg/dL (8.5-10.1) Assessment and Plan Assessmemt and Plan Problems Medical Problems: (1) Chest pain Status: Acute (2) Hypertension Status: Acute (3) Lactic acidosis Status: Acute (4) Tachycardia Status: Acute Comment Review of Relevant I have reviewed the following items dayna (where applicable) has been applied. Labs Laboratory Tests Test 10/24/17 14:55 10/24/17 15:56 10/24/17 16:01 10/24/17 16:50 White Blood Count 17.8 x10^3/uL (4.0-11.0) Red Blood Count 4.80 x10^6/uL (3.50-5.40) Hemoglobin 15.1 g/dL (12.0-15.5) Hematocrit 42.2 % (36.0-47.0) Mean Corpuscular Volume 88 fL (79-100) Mean Corpuscular Hemoglobin 32 pg (25-35) Mean Corpuscular Hemoglobin Concent 36 g/dL (31-37) Red Cell Distribution Width 12.9 % (11.5-14.5) Platelet Count 444 x10^3/uL (140-400) Neutrophils (%) (Auto) 78 % (31-73) Lymphocytes (%) (Auto) 15 % (24-48) Monocytes (%) (Auto) 6 % (0-9) Eosinophils (%) (Auto) 2 % (0-3) Basophils (%) (Auto) 0 % (0-3) Neutrophils # (Auto) 13.8 x10^3uL (1.8-7.7) Lymphocytes # (Auto) 2.6 x10^3/uL (1.0-4.8) Monocytes # (Auto) 1.0 x10^3/uL (0.0-1.1) Eosinophils # (Auto) 0.3 x10^3/uL (0.0-0.7) Basophils # (Auto) 0.1 x10^3/uL (0.0-0.2) Segmented Neutrophils % 75 % (35-66) Lymphocytes % 16 % (24-48) Monocytes % 6 % (0-10) Eosinophils % 2 % (0-5) Basophils % 1 % (0-3) Platelet Estimate Increased (ADEQUATE) D-Dimer (Racheal) 0.48 ug/mlFEU (0.00-0.50) Sodium Level 139 mmol/L (136-145) Potassium Level 2.9 mmol/L (3.5-5.1) Chloride Level 100 mmol/L (98-107) Carbon Dioxide Level 19 mmol/L (21-32) Anion Gap 20 (6-14) Blood Urea Nitrogen 5 mg/dL (7-20) Creatinine 1.0 mg/dL (0.6-1.0) Estimated GFR (Cockcroft-Gault) 62.4 Glucose Level 118 mg/dL (70-99) Calcium Level 9.9 mg/dL (8.5-10.1) Total Bilirubin 0.3 mg/dL (0.2-1.0) Direct Bilirubin 0.1 mg/dL (0.0-0.2) Aspartate Amino Transf (AST/SGOT) 34 U/L (15-37) Alanine Aminotransferase (ALT/SGPT) 38 U/L (14-59) Alkaline Phosphatase 112 U/L (46-116) Troponin I Quantitative < 0.017 ng/mL (0.000-0.055) Total Protein 9.1 g/dL (6.4-8.2) Albumin 4.0 g/dL (3.4-5.0) Lipase 164 U/L (73-393) Serum Test, Qualitative Negative (NEG) Salicylates Level 2.9 mg/dL (2.8-20.0) Salicylate Last Dose Date Unknown Salicylate Last Dose Time Unknown Acetaminophen Level < 2 mcg/ml (10-30) Acetaminophen Last Dose Date Unknown Acetaminophen Last Dose Time Unknown Ethyl Alcohol Level < 10 mg/dL (0-10) Urine Collection Type Void Urine Color Straw Urine Clarity Clear Urine pH 6.5 Urine Specific [place] <=1.005 Urine Protein Negative mg/dL (NEG-TRACE) Urine Glucose (UA) Negative mg/dL (NEG) Urine Ketones (Stick) Negative mg/dL (NEG) Urine Blood Small (NEG) Urine Nitrite Negative (NEG) Urine Bilirubin Negative (NEG) Urine Urobilinogen Dipstick 0.2 mg/dL (0.2 mg/dL) Urine Leukocyte Esterase Small (NEG) Urine RBC Rare /HPF (0-2) Urine WBC 1-4 /HPF (0-4) Urine Squamous Epithelial Cells Mod /LPF Urine Bacteria Moderate /HPF (0-FEW) Urine Opiates Screen Neg (NEG) Urine Methadone Screen Neg (NEG) Urine Barbiturates Neg (NEG) Urine Phencyclidine Screen Neg (NEG) Urine Amphetamine/Methamphetamine Pos (NEG) Urine Benzodiazepines Screen Neg (NEG) Urine Cocaine Screen Neg (NEG) Urine Cannabinoids Screen Neg (NEG) Urine Ethyl Alcohol Neg (NEG) Bedside Urine HCG, Qualitative Hcg negative (Negative) Lactic Acid Level 2.5 mmol/L (0.4-2.0) Test 10/24/17 20:30 10/24/17 23:40 10/25/17 00:40 10/25/17 04:35 Troponin I Quantitative < 0.017 ng/mL (0.000-0.055) < 0.017 ng/mL (0.000-0.055) Lactic Acid Level 1.9 mmol/L (0.4-2.0) White Blood Count 13.6 x10^3/uL (4.0-11.0) Red Blood Count 4.13 x10^6/uL (3.50-5.40) Hemoglobin 12.7 g/dL (12.0-15.5) Hematocrit 36.8 % (36.0-47.0) Mean Corpuscular Volume 89 fL (79-100) Mean Corpuscular Hemoglobin 31 pg (25-35) Mean Corpuscular Hemoglobin Concent 34 g/dL (31-37) Red Cell Distribution Width 13.3 % (11.5-14.5) Platelet Count 347 x10^3/uL (140-400) Neutrophils (%) (Auto) 59 % (31-73) Lymphocytes (%) (Auto) 27 % (24-48) Monocytes (%) (Auto) 6 % (0-9) Eosinophils (%) (Auto) 8 % (0-3) Basophils (%) (Auto) 1 % (0-3) Neutrophils # (Auto) 8.0 x10^3uL (1.8-7.7) Lymphocytes # (Auto) 3.6 x10^3/uL (1.0-4.8) Monocytes # (Auto) 0.8 x10^3/uL (0.0-1.1) Eosinophils # (Auto) 1.2 x10^3/uL (0.0-0.7) Basophils # (Auto) 0.1 x10^3/uL (0.0-0.2) Sodium Level 139 mmol/L (136-145) Potassium Level 3.9 mmol/L (3.5-5.1) Chloride Level 105 mmol/L (98-107) Carbon Dioxide Level 23 mmol/L (21-32) Anion Gap 11 (6-14) Blood Urea Nitrogen 5 mg/dL (7-20) Creatinine 0.7 mg/dL (0.6-1.0) Estimated GFR (Cockcroft-Gault) 94.2 Glucose Level 80 mg/dL (70-99) Calcium Level 8.6 mg/dL (8.5-10.1) Laboratory Tests Test 10/24/17 14:55 10/24/17 15:56 10/24/17 16:01 10/24/17 16:50 White Blood Count 17.8 x10^3/uL (4.0-11.0) Red Blood Count 4.80 x10^6/uL (3.50-5.40) Hemoglobin 15.1 g/dL (12.0-15.5) Hematocrit 42.2 % (36.0-47.0) Mean Corpuscular Volume 88 fL (79-100) Mean Corpuscular Hemoglobin 32 pg (25-35) Mean Corpuscular Hemoglobin Concent 36 g/dL (31-37) Red Cell Distribution Width 12.9 % (11.5-14.5) Platelet Count 444 x10^3/uL (140-400) Neutrophils (%) (Auto) 78 % (31-73) Lymphocytes (%) (Auto) 15 % (24-48) Monocytes (%) (Auto) 6 % (0-9) Eosinophils (%) (Auto) 2 % (0-3) Basophils (%) (Auto) 0 % (0-3) Neutrophils # (Auto) 13.8 x10^3uL (1.8-7.7) Lymphocytes # (Auto) 2.6 x10^3/uL (1.0-4.8) Monocytes # (Auto) 1.0 x10^3/uL (0.0-1.1) Eosinophils # (Auto) 0.3 x10^3/uL (0.0-0.7) Basophils # (Auto) 0.1 x10^3/uL (0.0-0.2) Segmented Neutrophils % 75 % (35-66) Lymphocytes % 16 % (24-48) Monocytes % 6 % (0-10) Eosinophils % 2 % (0-5) Basophils % 1 % (0-3) Platelet Estimate Increased (ADEQUATE) D-Dimer (Racheal) 0.48 ug/mlFEU (0.00-0.50) Sodium Level 139 mmol/L (136-145) Potassium Level 2.9 mmol/L (3.5-5.1) Chloride Level 100 mmol/L (98-107) Carbon Dioxide Level 19 mmol/L (21-32) Anion Gap 20 (6-14) Blood Urea Nitrogen 5 mg/dL (7-20) Creatinine 1.0 mg/dL (0.6-1.0) Estimated GFR (Cockcroft-Gault) 62.4 Glucose Level 118 mg/dL (70-99) Calcium Level 9.9 mg/dL (8.5-10.1) Total Bilirubin 0.3 mg/dL (0.2-1.0) Direct Bilirubin 0.1 mg/dL (0.0-0.2) Aspartate Amino Transf (AST/SGOT) 34 U/L (15-37) Alanine Aminotransferase (ALT/SGPT) 38 U/L (14-59) Alkaline Phosphatase 112 U/L (46-116) Troponin I Quantitative < 0.017 ng/mL (0.000-0.055) Total Protein 9.1 g/dL (6.4-8.2) Albumin 4.0 g/dL (3.4-5.0) Lipase 164 U/L (73-393) Serum Test, Qualitative Negative (NEG) Salicylates Level 2.9 mg/dL (2.8-20.0) Salicylate Last Dose Date Unknown Salicylate Last Dose Time Unknown Acetaminophen Level < 2 mcg/ml (10-30) Acetaminophen Last Dose Date Unknown Acetaminophen Last Dose Time Unknown Ethyl Alcohol Level < 10 mg/dL (0-10) Urine Collection Type Void Urine Color Straw Urine Clarity Clear Urine pH 6.5 Urine Specific [place] <=1.005 Urine Protein Negative mg/dL (NEG-TRACE) Urine Glucose (UA) Negative mg/dL (NEG) Urine Ketones (Stick) Negative mg/dL (NEG) Urine Blood Small (NEG) Urine Nitrite Negative (NEG) Urine Bilirubin Negative (NEG) Urine Urobilinogen Dipstick 0.2 mg/dL (0.2 mg/dL) Urine Leukocyte Esterase Small (NEG) Urine RBC Rare /HPF (0-2) Urine WBC 1-4 /HPF (0-4) Urine Squamous Epithelial Cells Mod /LPF Urine Bacteria Moderate /HPF (0-FEW) Urine Opiates Screen Neg (NEG) Urine Methadone Screen Neg (NEG) Urine Barbiturates Neg (NEG) Urine Phencyclidine Screen Neg (NEG) Urine Amphetamine/Methamphetamine Pos (NEG) Urine Benzodiazepines Screen Neg (NEG) Urine Cocaine Screen Neg (NEG) Urine Cannabinoids Screen Neg (NEG) Urine Ethyl Alcohol Neg (NEG) Bedside Urine HCG, Qualitative Hcg negative (Negative) Lactic Acid Level 2.5 mmol/L (0.4-2.0) Test 10/24/17 20:30 10/24/17 23:40 10/25/17 00:40 10/25/17 04:35 Troponin I Quantitative < 0.017 ng/mL (0.000-0.055) < 0.017 ng/mL (0.000-0.055) Lactic Acid Level 1.9 mmol/L (0.4-2.0) White Blood Count 13.6 x10^3/uL (4.0-11.0) Red Blood Count 4.13 x10^6/uL (3.50-5.40) Hemoglobin 12.7 g/dL (12.0-15.5) Hematocrit 36.8 % (36.0-47.0) Mean Corpuscular Volume 89 fL (79-100) Mean Corpuscular Hemoglobin 31 pg (25-35) Mean Corpuscular Hemoglobin Concent 34 g/dL (31-37) Red Cell Distribution Width 13.3 % (11.5-14.5) Platelet Count 347 x10^3/uL (140-400) Neutrophils (%) (Auto) 59 % (31-73) Lymphocytes (%) (Auto) 27 % (24-48) Monocytes (%) (Auto) 6 % (0-9) Eosinophils (%) (Auto) 8 % (0-3) Basophils (%) (Auto) 1 % (0-3) Neutrophils # (Auto) 8.0 x10^3uL (1.8-7.7) Lymphocytes # (Auto) 3.6 x10^3/uL (1.0-4.8) Monocytes # (Auto) 0.8 x10^3/uL (0.0-1.1) Eosinophils # (Auto) 1.2 x10^3/uL (0.0-0.7) Basophils # (Auto) 0.1 x10^3/uL (0.0-0.2) Sodium Level 139 mmol/L (136-145) Potassium Level 3.9 mmol/L (3.5-5.1) Chloride Level 105 mmol/L (98-107) Carbon Dioxide Level 23 mmol/L (21-32) Anion Gap 11 (6-14) Blood Urea Nitrogen 5 mg/dL (7-20) Creatinine 0.7 mg/dL (0.6-1.0) Estimated GFR (Cockcroft-Gault) 94.2 Glucose Level 80 mg/dL (70-99) Calcium Level 8.6 mg/dL (8.5-10.1) Medications Current Medications Sodium Chloride 1,000 ml @ 1,000 mls/hr 1X ONCE IV Last administered on at 15:23; Start 10/24/17 at 15:00; Stop 10/24/17 at 15:59; Status DC Ceftriaxone Sodium 50 ml @ 100 mls/hr 1X ONCE IV Last administered on at 15:53; Start 10/24/17 at 15:45; Stop 10/24/17 at 16:14; Status DC Potassium Chloride/Sodium Chloride 1,000 ml @ 75 mls/hr 1X ONCE IV Last administered on 10/24/17at 16:15; Start 10/24/17 at 16:00; Stop 10/25/17 at 05:19 ; Status DC Sodium Chloride 1,000 ml @ 1,000 mls/hr 1X ONCE IV Last administered on at 16:18; Start 10/24/17 at 16:15; Stop 10/24/17 at 17:14; Status DC Labetalol HCl (Normodyne Iv Push) 10 mg 1X ONCE IVP Last administered on at 17:50; Start 10/24/17 at 17:00; Stop 10/24/17 at 17:01; Status DC Iohexol (Omnipaque 300 Mg/ml) 100 ml STK-MED ONCE .ROUTE ; Start 10/24/17 at 17: 06; Stop 10/24/17 at 17:07; Status DC Ondansetron HCl (Zofran) 4 mg PRN Q8HRS PRN IV NAUSEA/VOMITING; Start 10/24/17 at 18:00; Stop 10/25/17 at 17:59 Morphine Sulfate (Morphine Sulfate) 2 mg PRN Q2HR PRN IV PAIN; Start 10/24/17 at 18:00; Stop 10/25/17 at 17:59 Sodium Chloride 1,000 ml @ 100 mls/hr Q10H IV Last administered on 10/25/17at 05:25; Start 10/24/17 at 17:47; Stop 10/25/17 at 17:46 Lorazepam (Ativan) 1 mg 1X ONCE IV Last administered on 10/24/17at 18:30; Start 10/24/17 at 18:00; Stop 10/24/17 at 18:01; Status DC Lidocaine (Lidoderm) 1 patch DAILY TD ; Start 10/25/17 at 18:30 Potassium Chloride (Klor-Con) 40 meq 1X ONCE PO Last administered on at 22:10; Start 10/24/17 at 21:30; Stop 10/24/17 at 21:36; Status DC Potassium Chloride (Klor-Con) 20 meq [id number] PO Last administered on at 09:53; Start 10/25/17 at 08:00 Info (Do NOT chart on this placeholder) 1 each 1X ONCE MC ; Start 10/24/17 at 23:45; Stop 10/24/17 at 23:46; Status UNV Influenza Virus Vaccine (Afluria Trivalent [id number] Syringe) 0.5 ml ONCE ONCE VAX IM Last administered on 10/25/17at 09:54; Start 10/25/17 at 09:00; Stop at 09:01; Status DC Vitals/I & O Vital Sign - Last 24 Hours 10/24/17 10/24/17 10/24/17 10/24/17 14:37 14:55 15:25 15:57 Temp 97.7 97.7 Pulse 118 124 110 104 Resp 26 26 15 27 B/P (MAP) 204/109 (140) 166/107 (126) 174/96 (122) 188/88 (121) Pulse Ox 100 99 98 99 O2 Delivery Room Air Room Air Room Air Room Air 10/24/17 10/24/17 10/24/17 10/24/17 16:25 16:55 17:23 17:40 Pulse 102 108 122 110 Resp 17 16 27 B/P (MAP) 183/94 (123) 167/87 (113) 191/98 (129) 167/90 (115) Pulse Ox 100 100 100 99 O2 Delivery Room Air Room Air Room Air Room Air 10/24/17 10/24/17 10/24/17 10/24/17 17:50 17:50 18:05 18:20 Pulse 106 102 102 90 Resp 22 B/P (MAP) 191/98 144/77 (99) 157/98 (117) 171/112 (131) Pulse Ox 100 100 100 O2 Delivery Room Air Room Air Room Air 10/24/17 10/24/17 10/24/17 10/24/17 18:35 18:50 19:05 19:20 Pulse 94 84 72 68 Resp 23 21 19 21 B/P (MAP) 152/70 (97) 167/94 (118) 181/86 (117) 176/84 (114) Pulse Ox 100 100 100 100 O2 Delivery Room Air Room Air Room Air Room Air 10/24/17 10/24/17 10/24/17 10/24/17 19:35 19:50 20:05 20:50 Temp 98.5 98.5 Pulse 76 86 94 99 Resp 24 23 23 16 B/P (MAP) 177/82 (113) 163/77 (105) 155/91 (112) 158/92 (114) Pulse Ox 99 99 99 100 O2 Delivery Room Air Room Air Room Air Room Air 10/24/17 10/24/17 10/25/17 10/25/17 21:15 22:38 03:26 07:00 Temp 98.8 98.3 98.2 98.8 98.3 98.2 Pulse 94 105 86 Resp 16 16 18 B/P (MAP) 156/98 (117) 141/96 (111) 140/78 (98) Pulse Ox 98 98 99 O2 Delivery Room Air Room Air Room Air Room Air 10/25/17 10/25/17 08:00 11:00 Temp 98.2 98.2 Pulse 82 Resp 18 B/P (MAP) 121/78 (92) Pulse Ox 98 O2 Delivery Room Air Room Air Intake and Output 10/24/17 10/24/17 10/25/17 15:00 23:00 07:00 Intake Total 1050 ml 1200 ml Output Total 400 ml Balance 650 ml 1200 ml NICA RAYMOND MD Oct 25, 2017 14:30
[2017-10-25 15:00] VITALS: BP 126/74
--- NOTE | 2017-10-25 17:01 | CARD ---
MR#: [id number] Date of Study: 10/25/2017 Ordering Physician: TATUM BAUER, Referring Physician: KEENAN MEANS Tech: Kesha Angelo RDCS APPROVED REPORT EXAM: Two-dimensional and M-mode echocardiogram with Doppler and color Doppler. Other Information Quality : Good INDICATION Chest Pain 2D DIMENSIONS RVDd2.5 (2.9-3.5cm)Left Atrium(2D)3.0 (1.6-4.0cm) IVSd0.7 (0.7-1.1cm)Aortic Root(2D)2.3 (2.0-3.7cm) LVDd4.2 (3.9-5.9cm)LVOT Diameter1.8 (1.8-2.4cm) PWd0.8 (0.7-1.1cm)LVDs2.9 (2.5-4.0cm) FS (%) 30.2 %SV45.9 ml LVEF(%)58.0 (>50%) Aortic Valve AoV Peak Bal.143.0cm/sAoV VTI23.7cm AO Peak GR.8.2mmHgLVOT Peak Bal.89.8cm/s LVOT VTI 18.47cmAO Mean GR.4mmHg EVA (VMAX)1.25le6MWN (VTI)2.06cm2 Mitral Valve MV E Rjepodbs94.2cm/sMV DECEL [id number] MV A Aecrjtnj01.8cm/sMV ULB66dt E/A Ratio0.9MVA (PHT)3.74cm2 TDI E/Lateral E'5.3E/Medial E'8.3 Tricuspid Valve TR P. Kriimaum487sb/sRAP GUDOUHJX4odNh TR Peak Gr.36gcXyALVH23flRa Pulmonary Vein S1 Yzblveig34.8cm/sD2 Zqcixyep13.2cm/s LEFT VENTRICLE The left ventricle is normal size. There is normal left ventricular wall thickness. The left ventricu lar systolic function is normal. The ejection fraction is estimated at 55-60%. There is normal LV seg mental wall motion. The left ventricular diastolic function and filling is normal for age. RIGHT VENTRICLE The right ventricle is normal size. The right ventricular systolic function is normal. ATRIA The left atrium size is normal. The right atrium size is normal. The interatrial septum is intact wit h no evidence for an atrial septal defect or patent foramen ovale as noted on 2-D or Doppler imaging. AORTIC VALVE The aortic valve is normal in structure and function. Doppler and Color Flow revealed no significant aortic regurgitation. There is no significant aortic valvular stenosis. MITRAL VALVE The mitral valve is normal in structure and function. There is no evidence of mitral valve prolapse. There is no mitral valve stenosis. Doppler and Color Flow revealed no mitral valve regurgitation note d. TRICUSPID VALVE The tricuspid valve is normal in structure Doppler and Color Flow revealed trace tricuspid regurgitat ion. The PA pressure was estimated at 20 mmHg. There is no tricuspid valve stenosis. PULMONIC VALVE The pulmonic valve is not well visualized. Doppler and Color Flow revealed no pulmonic valvular regur gitation. There is no pulmonic valvular stenosis. GREAT VESSELS The aortic root is normal in size. The ascending aorta is normal in size. The IVC is normal in size a nd collapses >50% with inspiration. PERICARDIAL EFFUSION There is no evidence of significant pericardial effusion. Critical Notification Critical Value: No <Conclusion> The left ventricular systolic function is normal. The ejection fraction is estimated at 55-60%. There is normal LV segmental wall motion. Doppler and Color Flow revealed trace tricuspid regurgitation. The PA pressure was estimated at 20 mmHg. There is no evidence of significant pericardial effusion. Signed by : Destin Sanz, Electronically Approved : 10/25/2017 17:00:18
[2017-10-25] MEDS ORDERED: LIDOCAINE (700MG/PATCH) PATCH. TD SCH (18:30)
--- NOTE | 2017-10-25 19:48 | PDOC3 ---
Discharge Summary IPC Date of Admission: Oct 24, 2017 Discharge Date: Oct 25, 2017 Admitting Diagnosis chest pain, left sternal, with palpitation with meth Meth use, she seems unaware, and may have accidentally ingested hypokalemia SIRS - leukocytosis, reactive likely Final Diagnosis CONSULTS card Brief Hospital Course Ms. Ferraro is a 36 old F, cambodian speaking, coming for sob, chest pain. She was found sinus tachycardia, + meth, leukocytosis. Pt said not know she took meth, could be given by other people. pt has no chest pain, sob on 2nd day, TTE normal. card consulted, no intervention. dc home. dc time 35min. Disposition home CONDITION AT DISCHARGE: Improved No Active Prescriptions or Reported Meds NICA RAYMOND MD Oct 25, 2017 19:48
== END 2017-10-25 17:56 | disposition home or self-care (01) ==
LOC: ER 14:31 → INTOOBSV 17:46 → 2 NORTH 17:46
PROVIDERS: ADMIT Internal Medicine; ATTEND Internal Medicine
DX: R07.89 Other chest pain (principal); F41.9 Anxiety disorder, unspecified; I10 Essential (primary) hypertension; E87.6 Hypokalemia; R65.10 Systemic inflammatory response syndrome (SIRS) of non-infectious origin without acute organ dysfunction; D72.829 Elevated white blood cell count, unspecified; F15.90 Other stimulant use, unspecified, uncomplicated
CPT/HCPCS: 36415; 71045; 71275; 80048; 80076; 80307; 80329; 81001; 81025; 83605; 83690; 84484; 84703; 85007; 85025; 85379; 87086; 90471; 90756; 93005; 93306; 96365; 96366; 96368; 96375; 99285; G0378; G0480; G6039; J0690; J2060; J3490; J7030; G0379; G0479; Q2035

== ENCOUNTER 2017-10-27 22:41 | Emergency (ER) | payer SELFPAY ==
[~2017-10-27] VITALS: Ht 162.6 cm; Wt 72.6 kg
[2017-10-27] MEDS ORDERED: ASPIRIN 325 MG TABLET PO ONE (23:15)
[2017-10-27] MEDS ORDERED: IV NORMAL SALINE 1000ML BAG 1,000 ML IV ONE (23:15)
--- NOTE | 2017-10-27 23:36 | PHYS DOC ---
Past Medical History Past Medical History: Hypertension, Other Additional Past Medical Histor: HYPOKALEMIA Past Surgical History: No Surgical History Alcohol Use: None Drug Use: None Adult General Chief Complaint Chief Complaint: CHEST PAIN HPI HPI Patient is a 36 year old female with past medical history of hypertension who presents with chest pain, headache, and dizziness. Reports chest pain began at 4 PM this afternoon it is located in the midsternal region described as pressure with severity of 8 out of 10. Patient denies radiation of pain but notes shortness of breath and nausea. Patient was seen in the ED and admitted for chest pain 3 days ago. Patient notes this pain feels the same as it did then. Patient notes her headache began 90 minutes ago. Patient notes headache is bilateral located in the frontal region. Patient notes she has also had dizziness today and describes this as spinning. Patient denies any falls, syncope, or head trauma. Patient denies aggravating or alleviating factors to her dizziness. LOOKSIMA phone was used for translation as patient is Vietnamese speaker. Review of Systems Review of Systems Constitutional: Denies fever or chills [] Eyes: Denies change in visual acuity, redness, or eye pain [] HENT: Denies nasal congestion or sore throat [] Respiratory: Denies cough. Notes shortness of breath [] Cardiovascular: Notes chest pain, denies palpitations[] GI: Denies abdominal pain, vomiting, bloody stools or diarrhea [] : Denies dysuria or hematuria [] Musculoskeletal: Denies back pain or joint pain [] Integument: Denies rash or skin lesions [] Neurologic: Notes headache. Denies focal weakness or sensory changes [] Complete systems were reviewed and found to be within normal limits, except as documented in this note. Current Medications Current Medications Current Medications Medications (Trade) Dose Ordered Sig/Liborio Start Time Stop Time Status Last Admin Dose Admin Aspirin (Becky Aspirin) 325 mg 1X ONCE 10/27/17 23:15 10/27/17 23:16 DC 10/27/17 23:57 325 MG Ceftriaxone Sodium 50 ml @ 100 mls/hr 1X ONCE 10/28/17 01:00 10/28/17 01:29 DC 10/28/17 01:28 100 MLS/HR Dexamethasone Sodium Phosphate (Decadron) 10 mg 1X ONCE 10/28/17 02:00 10/28/17 02:01 DC 10/28/17 02:34 10 MG Ketorolac Tromethamine (Toradol 15mg Vial) 15 mg 1X ONCE 10/28/17 02:00 10/28/17 02:01 DC 10/28/17 02:33 15 MG Ondansetron HCl (Zofran) 4 mg 1X ONCE 10/28/17 02:00 10/28/17 02:01 DC 10/28/17 02:33 4 MG Sodium Chloride 1,000 ml @ 1,000 mls/hr 1X ONCE 10/27/17 23:15 10/28/17 00:14 DC 10/27/17 23:15 1,000 MLS/HR Allergies Allergies Allergies Coded Allergies Type Severity Reaction Last Updated Verified No Known Drug Allergies 10/24/17 No Physical Exam Physical Exam Constitutional: Well developed, well nourished, no acute distress, non-toxic appearance. [] HENT: Normocephalic, atraumatic, bilateral external ears normal, oropharynx moist, no oral exudates, nose normal. [] Eyes: PERRL, EOMI, conjunctiva normal, no discharge. No nystagmus.[] Neck: Normal range of motion, no tenderness, supple, no meningismus. [] Cardiovascular:Heart rate regular rhythm, no murmur [] Lungs & Thorax: Bilateral breath sounds clear to auscultation [] Abdomen: Bowel sounds normal, soft, no tenderness. [] Skin: Warm, dry, no erythema, no rash. [] Back: No tenderness, no CVA tenderness. [] Extremities: No tenderness, ROM intact, no edema. [] Neurologic: Alert and oriented X 3, normal motor function, normal sensory function, no focal deficits noted. Cerebellum function normal. [] Psychologic: Affect normal, judgement normal, mood normal. [] Current Patient Data Vital Signs Vital Signs Date Time Temp Pulse Resp B/P (MAP) Pulse Ox O2 Delivery O2 Flow Rate FiO2 10/28/17 02:30 64 15 143/89 (107) 100 Room Air 10/27/17 22:42 97.7 97.7 Lab Values Laboratory Tests Test 10/27/17 23:25 10/27/17 23:46 10/27/17 23:50 10/28/17 00:41 White Blood Count 14.4 x10^3/uL (4.0-11.0) H Red Blood Count 4.33 x10^6/uL (3.50-5.40) Hemoglobin 13.6 g/dL (12.0-15.5) Hematocrit 38.3 % (36.0-47.0) Mean Corpuscular Volume 89 fL (79-100) Mean Corpuscular Hemoglobin 31 pg (25-35) Mean Corpuscular Hemoglobin Concent 36 g/dL (31-37) Red Cell Distribution Width 13.1 % (11.5-14.5) Platelet Count 344 x10^3/uL (140-400) Neutrophils (%) (Auto) 61 % (31-73) Lymphocytes (%) (Auto) 26 % (24-48) Monocytes (%) (Auto) 5 % (0-9) Eosinophils (%) (Auto) 8 % (0-3) H Basophils (%) (Auto) 0 % (0-3) Neutrophils # (Auto) 8.8 x10^3uL (1.8-7.7) H Lymphocytes # (Auto) 3.7 x10^3/uL (1.0-4.8) Monocytes # (Auto) 0.7 x10^3/uL (0.0-1.1) Eosinophils # (Auto) 1.2 x10^3/uL (0.0-0.7) H Basophils # (Auto) 0.0 x10^3/uL (0.0-0.2) Segmented Neutrophils % 60 % (35-66) Lymphocytes % 29 % (24-48) Monocytes % 5 % (0-10) Eosinophils % 6 % (0-5) H Platelet Estimate Adequate (ADEQUATE) Prothrombin Time 12.7 SEC (11.7-14.0) Prothrombin Time INR 1.0 (0.8-1.1) Sodium Level 140 mmol/L (136-145) Potassium Level 3.6 mmol/L (3.5-5.1) Chloride Level 103 mmol/L (98-107) Carbon Dioxide Level 28 mmol/L (21-32) Anion Gap 9 (6-14) Blood Urea Nitrogen 8 mg/dL (7-20) Creatinine 0.7 mg/dL (0.6-1.0) Estimated GFR (Cockcroft-Gault) 94.2 BUN/Creatinine Ratio 11 (6-20) Glucose Level 95 mg/dL (70-99) Calcium Level 9.1 mg/dL (8.5-10.1) Magnesium Level 2.1 mg/dL (1.8-2.4) Total Bilirubin 0.3 mg/dL (0.2-1.0) Aspartate Amino Transferase (AST) 24 U/L (15-37) Alanine Aminotransferase (ALT) 34 U/L (14-59) Alkaline Phosphatase 88 U/L (46-116) Creatine Kinase 47 U/L (26-192) Troponin I Quantitative < 0.017 ng/mL (0.000-0.055) < 0.017 ng/mL (0.000-0.055) FI-Iah-Y-Type Natriuretic Peptide 68 pg/mL (0-124) Total Protein 8.1 g/dL (6.4-8.2) Albumin 3.5 g/dL (3.4-5.0) Albumin/Globulin Ratio 0.8 (1.0-1.7) L Lipase 182 U/L (73-393) Urine Collection Type Unknown Urine Color Yellow Urine Clarity Clear Urine pH 5.5 Urine Specific [place] 1.010 Urine Protein Negative mg/dL (NEG-TRACE) Urine Glucose (UA) Negative mg/dL (NEG) Urine Ketones (Stick) Negative mg/dL (NEG) Urine Blood Small (NEG) Urine Nitrite Negative (NEG) Urine Bilirubin Negative (NEG) Urine Urobilinogen Dipstick 0.2 mg/dL (0.2 mg/dL) Urine Leukocyte Esterase Large (NEG) Urine RBC Occ /HPF (0-2) Urine WBC 20-40 /HPF (0-4) Urine Squamous Epithelial Cells Mod /LPF Urine Bacteria Moderate /HPF (0-FEW) Urine Mucus Slight /LPF POC Urine HCG, Qualitative Hcg negative (Negative) Laboratory Tests 10/27/17 23:25 Laboratory Tests 10/27/17 23:25 EKG EKG Normal sinus rhythm, normal axis, normal NC. Heart rate 74, QRS 76, QTC 411. No evidence of any acute ischemic changes. Unable to compare with previous EKG as it is not available at this time.[] Radiology/Procedures Radiology/Procedures Chest x-ray- (initial evaluation by ED physician)- no evidence of any intrathoracic abnormality. Course & Med Decision Making Course & Med Decision Making 36-year-old female presenting with chest pain, headache, dizziness. Patient admitted with the same chest pain 3 days ago for ACS rule out which was negative. Workup at that time including serial troponin, CT angiogram was negative. Patient notes that today she is also having a headache which is different from 3 days ago. Patient notes that she has also had room spinning dizziness throughout the day today. Patient denies any falls or trauma. Labs were collected and reviewed. EKG shows no signs of acute ischemia. Initial and repeat troponin negative. Patient was found to have a UTI on urinalysis. Leukocytosis at 14.4 Patient given 1 g Rocephin in the emergency department and provided with prescription for Keflex by mouth. Patient also given prescriptions for Zofran, Pepcid, and Fioricet. Patient given 1 L normal saline bolus and 324 mg chewable aspirin in the ED. Patient stable for discharge with outpatient follow-up with PCP. Discussed findings and plan with patient, who acknowledge understanding and agreement. LOOKSIMA phone was used for translation as patient is a Vietnamese speaker. Dragon Disclaimer Dragon Disclaimer This electronic medical record was generated, in whole or in part, using a voice recognition dictation system. Departure Departure Impression: Primary Impression: Atypical chest pain Additional Impressions: Headache UTI (urinary tract infection) Disposition: 01 HOME, SELF-CARE Condition: STABLE Referrals: NO PCP (PCP) Patient Instructions: Chest Pain (Nonspecific), Czge-[id number]-Cmyw, Dizziness, Easy- to-Read, General Headache Without Cause, Rjuu-ei-Adxg, Urinary Tract Infection, Rgpp-hn-Urce Scripts Cephalexin (KEFLEX) 500 Mg Capsule 500 MG PO TID for 7 Days, #21 CAP Prov: ROBERT WILLIS DO 10/28/17 Ondansetron (ZOFRAN ODT) 4 Mg Tab.rapdis 1 TAB SL Q8HRS, #15 TAB 0 Refills Prov: ROBERT WILLIS DO 10/28/17 Famotidine (PEPCID) 20 Mg Tablet 20 MG PO BID, #20 TAB 0 Refills Prov: ROBERT WILLIS DO 10/28/17 Butalb/Acetaminophen/Caffeine ([id number] 50-325-40) 1 Each Tablet 1 EACH PO Q6HRS PRN for HEADACHE, #14 TAB 0 Refills Prov: ROBERT WILLIS DO 10/28/17 Problem Qualifiers Additional Impressions: Headache Headache type: unspecified Headache chronicity pattern: unspecified pattern Intractability: not intractable Qualified Codes: R51 - Headache UTI (urinary tract infection) Urinary tract infection type: acute cystitis Hematuria presence: with hematuria Qualified Codes: N30.01 - Acute cystitis with hematuria ROBERT WILLIS DO Oct 27, 2017 23:36
[2017-10-27 23:37] LABS: BASO % 0 % (0-3); EOS # 1.2 x10^3/uL (0.0-0.7); EOS % 8 % (0-3); HEMATOCRIT 38.3 % (36.0-47.0); HEMOGLOBIN 13.6 g/dL (12.0-15.5); LYMPH # 3.7 x10^3/uL (1.0-4.8); LYMPH % 26 % (24-48); MEAN CORPUSCULAR HEMOGLOBIN 31 pg (25-35); MEAN CORPUSCULAR HGB CONC 36 g/dL (31-37); MEAN CORPUSCULAR VOLUME 89 fL (79-100); MONO # 0.7 x10^3/uL (0.0-1.1); MONO % 5 % (0-9); NEUT # 8.8 x10^3uL (1.8-7.7); NEUT % 61 % (31-73); PLATELET COUNT 344 x10^3/uL (140-400); RED BLOOD COUNT 4.33 x10^6/uL (3.50-5.40); RED CELL DISTRIBUTION WIDTH 13.1 % (11.5-14.5); WHITE BLOOD COUNT 14.4 x10^3/uL (4.0-11.0)
[2017-10-27 23:41] LABS: PROTHROMBIN TIME PATIENT 12.7 SEC (11.7-14.0)
[2017-10-27 23:53] LABS: CALCIUM 9.1 mg/dL (8.5-10.1); CREATININE 0.7 mg/dL (0.6-1.0); GFR 94.2; POTASSIUM 3.6 mmol/L (3.5-5.1)
[2017-10-27 23:55] LABS: BILIRUBIN,URINE NEGATIVE (NEG); CLARITY,URINE CLEAR; COLOR,URINE YELLOW; NITRITE,URINE NEGATIVE (NEG); PH,URINE 5.5; PROTEIN,URINE NEGATIVE (NEG-TRACE); UROBILINOGEN,URINE 0.2 mg/dL (0.2 mg/dL)
[2017-10-27 23:56] LABS: ALBUMIN 3.5 g/dL (3.4-5.0); ALBUMIN/GLOBULIN RATIO 0.8 (1.0-1.7); MAGNESIUM 2.1 mg/dL (1.8-2.4); TOTAL BILIRUBIN 0.3 mg/dL (0.2-1.0); TOTAL PROTEIN 8.1 g/dL (6.4-8.2)
[2017-10-27 23:57] LABS: % EOS 6 % (0-5); % LYMPHS 29 % (24-48); % MONOS 5 % (0-10); % SEGS 60 % (35-66); PLT ESTIMATE ADEQUATE (ADEQUATE)
[2017-10-28 00:02] LABS: BACTERIA,URINE MODERATE /HPF (0-FEW); RBC,URINE OCC /HPF (0-2); SQUAMOUS EPITHELIAL CELL,UR MOD /LPF; WBC,URINE 20-40 /HPF (0-4)
[2017-10-28] MEDS ORDERED: ONDANSETRON PF 4 MG/2 ML VIAL. IV ONE (02:00)
[2017-10-28] MEDS ORDERED: KETOROLAC 15 MG/ML VIAL. IV ONE (02:00)
[2017-10-28] MEDS ORDERED: DEXAMETHASONE SOD PHOS 4 MG/ML VIAL IV ONE (02:00)
[2017-10-28] MEDS ORDERED: FAMO-63 PO (02:10)
[2017-10-28] MEDS ORDERED: BUTA1TAB23 PO (02:10)
[2017-10-28] MEDS ORDERED: ONDA4TAB10 SL (02:10)
[2017-10-28 02:30] VITALS: BP 143/89
[2017-10-28] MEDS ORDERED: CEPH-264 PO (02:33)
--- NOTE | 2017-10-28 04:17 | RAD ---
PROCEDURE: CHEST PA LATERAL CLINICAL INDICATION: soa COMPARISON: None FINDINGS: No pneumothorax identified. Cardiac and mediastinal contours unremarkable. No pulmonary consolidation or acute airspace disease. No acute osseous abnormalities identified. IMPRESSION: No pulmonary consolidation or acute airspace disease. Electronically signed by: Carroll Casillas DO (10/28/2017 4:13 AM) [id number]
--- NOTE | 2017-10-28 21:21 | EKG ---
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
== END 2017-10-28 02:45 | disposition home or self-care (01) ==
LOC: ER 22:41
DX: R07.89 Other chest pain (principal); R51 Headache; R42 Dizziness and giddiness; I10 Essential (primary) hypertension; N30.01 Acute cystitis with hematuria
CPT/HCPCS: 36415; 71046; 80053; 81001; 81025; 82550; 83690; 83735; 83880; 84484; 85007; 85025; 85610; 93005; 96361; 96365; 96375; 99285; J0690; J1100; J1885; J2405; J7030